=== PATIENT | male | born 2000 | race Two or more races ===

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

== ENCOUNTER 2021-01-23 10:01 | Emergency (ER) | payer MEDICAID, OTHER ==
[~2021-01-23] VITALS: Ht 180.3 cm; Wt 75.0 kg
[2021-01-23 10:03] VITALS: BP 111/68
[2021-01-23] MEDS ORDERED: LIDOCAINE/PF 1% 2 ML VIAL IM ONE (12:15)
[2021-01-23] MEDS ORDERED: AZITHROMYCIN 500 MG TABLET PO ONE (12:15)
[2021-01-23] MEDS ORDERED: CefTRIAXone SODIUM 1 GM/VIAL IM ONE (12:15)
== END 2021-01-23 13:40 | disposition home or self-care (01) ==
LOC: EMS 10:01
DX: N34.2 Other urethritis (principal); F17.210 Nicotine dependence, cigarettes, uncomplicated; F12.90 Cannabis use, unspecified, uncomplicated; Z88.0 Allergy status to penicillin
CPT/HCPCS: 96372; 99283; J0696; J3490; Q9967

== ENCOUNTER 2024-01-28 01:40 | Emergency (ER) | payer OTHER ==
[~2024-01-28] VITALS: Ht 180.3 cm; Wt 75.0 kg
[2024-01-28 01:42] VITALS: BP 149/92; PULSE 115; RESP 18; TEMP 98; O2SAT 97
== END 2024-01-28 02:11 | disposition left against medical advice (07) ==
LOC: EMS 01:40
DX: R07.9 Chest pain, unspecified (principal); Z53.21 Procedure and treatment not carried out due to patient leaving prior to being seen by health care provider
CPT/HCPCS: 82962; 93005